=== PATIENT | male | born 1980 | race Caucasian/White ===

== ENCOUNTER 2023-05-17 13:51 | Inpatient (IN) | payer SELFPAY ==
[~2023-05-17] VITALS: Ht 167.6 cm; Wt 95.9 kg
[2023-05-17] MEDS ORDERED: ONDANSETRON HCL 4MG/2ML INJ IV STA (14:16)
[2023-05-17] MEDS ORDERED: SODIUM CHLORIDE 0.9% 1,000 ML IV ONE ×2 (14:30)
[2023-05-17 15:17] LABS: BASOPHILS % 0.3 % (0.0-2.0); HEMATOCRIT. 44.5 % (42.0-52.0); HEMOGLOBIN. 14.7 g/dL (14.0-18.0); LYMPHOCYTES % 16.7 % (20.0-50.0); MEAN CORPUSCULAR HEMOGLOBIN 27.3 pg (28.0-32.0); MEAN CORPUSCULAR VOLUME 82.7 fL (80.0-94.0); MEAN PLATELET VOLUME 10.2 fl (7.4-10.4); MONOCYTES % 4.7 % (2.0-8.0); NEUTROPHILS % 78.3 % (40.0-76.0); PLATELET 203 x1000/uL (130-400); RED BLOOD CELL COUNT 5.38 mill/uL (4.7-6.1); RED CELL DISTRIBUTION WIDTH 14.6 % (11.6-14.6)
[2023-05-17 15:19] LABS: PROTHROMBIN TIME 10.7 sec (9.6-11.0)
[2023-05-17 15:20] LABS: CHLORIDE 114 mEq/L (98-107)
[2023-05-17 15:26] LABS: BG BASE EXCESS -14.4 mmol/L (-2.0-2.0); BG CARBOXYHEMOGLOBIN 0.5 % (0.5-1.5); BG DEOXYHEMOGLOBIN 4.3 % (0.0-5.0); BG FRACTION INSPIRED OXYGEN 21; BG HCO3 ACT 12.4 mmol/L (22.0-26.0); BG METHEMOGLOBIN 0.2 % (0.0-1.5); BG OXYGEN SATURATION 95.7 % (92.0-98.5); BG PCO2 32.3 mmHg (35.0-45.0); BG PH 7.201 (7.350-7.450); BG PO2 91.1 mmHg (75.0-100.0); BG SAMPLE SITE LEFT RADIAL; BG TOTAL HEMOGLOBIN 14.7 g/dL (12.0-18.0); BG VENT MODE ROOM AIR
[2023-05-17 15:29] LABS: BETA HYDROXYBUTYRATE 4.8 mMol/L (0.0-0.3); ETHANOL BLOOD 53 mg/dL (-10); PHOSPHORUS 1.5 mg/dL (2.5-4.9)
[2023-05-17] MEDS ORDERED: POTASSIUM CHLORIDE INJ 40 MEQ in DEXT 5% WATER 250 ML IV ONE (15:45)
[2023-05-17] MEDS ORDERED: NYSTATIN 100,000 UNITS/ML 5ML UDC SSW NR (16:00)
[2023-05-17] MEDS: KCL 20MEQ/100ML X 2 FOR TOTAL KCL 40MEQ/200ML IV SCH ×2 (16:22→20:41)
[2023-05-17] MEDS ORDERED: DEXTROSE 50% WATER 50ML SYRINGE IV PRN ×3 (16:45→19:00)
[2023-05-17] MEDS ORDERED: SODIUM CHL 0.45% + KCL 20MEQ/L 1,000 ML IV ONE (16:45)
[2023-05-17] MEDS ORDERED: INSULIN REGULAR 100U/100ML PMX 100 ML IV SCH ×2 (16:45→19:00)
[2023-05-17] MEDS: BLOOD SUGAR DIAGNOSTIC STRIP TEST SCH ×11 (17:06→22:44)
[2023-05-17] MEDS ORDERED: ONDANSETRON HCL 4MG/2ML INJ IV NR (17:15)
[2023-05-17] MEDS ORDERED: SODIUM PHOS,M-BASIC-D-BASIC 15 MM in DEXT 5% WATER 245 ML IV NR (17:30)
[2023-05-17 18:14] LABS: CLARITY URINE CLEAR (CLEAR); COLOR URINE YELLOW (YELLOW); KETONES URINE 2+ (NEGATIVE); LEUKOCYTE ESTERASE URINE NEGATIVE (NEGATIVE); NITRITE URINE NEGATIVE (NEGATIVE); OCCULT BLOOD URINE NEGATIVE (NEGATIVE); PH URINE 5.5 (4.5-8.0); PROTEIN URINE NEGATIVE (NEGATIVE); SPECIFIC GRAVITY URINE 1.021 (1.005-1.030); UROBILINOGEN URINE 0.2 E.U./dL (0.2-1.0)
[2023-05-17 18:45] LABS: *AMPHETAMINES SCREEN URINE PRESUMTIVE POSITIVE (NEGATIVE); *BARBITURATES SCREEN URINE NEGATIVE (NEGATIVE); *BENZODIAZEPINES SCREEN URINE NEGATIVE (NEGATIVE); *COCAINE SCREEN URINE NEGATIVE (NEGATIVE); CANNABINOID URINE SCREEN NEGATIVE (NEGATIVE); METHADONE URINE SCREEN NEGATIVE (NEGATIVE); OPIATES URINE SCREEN NEGATIVE (NEGATIVE); PHENCYCLIDINE URINE SCREEN NEGATIVE (NEGATIVE)
[2023-05-17 18:55] LABS: CHLORIDE 109 mEq/L (98-107)
[2023-05-17] MEDS ORDERED: IPRATROPIUM/ALBUTEROL 0.5-3(2.5)MG/3ML NEB NEB PRN (19:00)
[2023-05-17] MEDS ORDERED: DOCUSATE SODIUM 100MG CAPSULE PO PRN (19:00)
[2023-05-17] MEDS ORDERED: MAGNESIUM/ALUMINUM HYDROXIDE/SIMETHICONE 30ML UDC PO PRN (19:00)
[2023-05-17] MEDS ORDERED: NITROGLYCERIN 0.4MG TABLET SL SL PRN (19:00)
[2023-05-17] MEDS ORDERED: CLONIDINE 0.1MG TABLET PO PRN (19:00)
[2023-05-17] MEDS ORDERED: ZOLPIDEM TARTRATE 5MG TABLET PO PRN (19:00)
[2023-05-17] MEDS ORDERED: GUAIFENESIN 200MG/10ML SUGAR FREE UDC PO PRN (19:00)
[2023-05-17] MEDS ORDERED: MVI, ADULT NO.1 10 ML, FOLIC ACID 1 MG, THIAMINE HCL 100 MG in SODIUM CHLORIDE 0.9% 1,0... IV ONE ×4 (20:00)
[2023-05-17 20:06] LABS: T4 FREE 0.89 ng/dL (0.76-1.46)
[2023-05-17 20:25] LABS: CHLORIDE 110 mEq/L (98-107)
[2023-05-17 20:32] LABS: FOLIC ACID (FOLATE) SERUM 15.9 ng/mL (>5.38)
[2023-05-17] MEDS: ENOXAPARIN 30MG/0.3ML SYR SUBCUT SCH (20:53)
[2023-05-18] VITALS (9 sets, daily range): BP systolic 100–143; BP diastolic 60–95; PULSE 78–136; RESP 16–20; TEMP 97–98.8
[2023-05-18] MEDS: BLOOD SUGAR DIAGNOSTIC STRIP TEST SCH ×14 (00:23→21:00)
[2023-05-18 02:56] LABS: CHLORIDE 109 mEq/L (98-107)
[2023-05-18] MEDS ORDERED: SODIUM CHLORIDE 0.9% 1,000 ML IV SCH (03:00)
[2023-05-18] MEDS: KETOROLAC 15MG/ML VIAL IV PRN ×2 (03:56→18:39)
[2023-05-18] MEDS ORDERED: POTASSIUM CHLORIDE 20MEQ TABLET SR PO NR (04:15)
[2023-05-18] MEDS ORDERED: DEXTROSE 50% WATER 50ML SYRINGE IV PRN (05:00)
[2023-05-18] MEDS ORDERED: DEXT 5%/0.9% NACL 1,000 ML IV ONE (05:00)
[2023-05-18] MEDS ORDERED: MAGNESIUM 1 G PREMIX 100 ML IV ONE (07:45)
[2023-05-18] MEDS ORDERED: DEXT 5%/0.45% NACL 1000ML 1,000 ML IV SCH (07:45)
[2023-05-18] MEDS ORDERED: POTASSIUM PHOS,M-BASIC-D-BASIC 20 MMOL in DEXT 5% WATER 243.3333 ML IV NR (08:00)
[2023-05-18] MEDS: ENOXAPARIN 30MG/0.3ML SYR SUBCUT SCH ×2 (08:29→21:32)
[2023-05-18] MEDS: POTASSIUM CHLORIDE 20MEQ TABLET SR PO SCH (08:49)
[2023-05-18] MEDS: PANTOPRAZOLE SODIUM 40 MG/VIAL IV SCH (08:56)
[2023-05-18] MEDS: INSULIN LISPRO 100 UNITS/ML SUBCUT SCH ×6 (10:31→21:34)
[2023-05-18 11:37] LABS: BASOPHILS % 0.7 % (0.0-2.0); EOSINOPHILS % 0.6 % (0.0-5.0); HEMATOCRIT. 41.7 % (42.0-52.0); HEMOGLOBIN. 14.1 g/dL (14.0-18.0); LYMPHOCYTES % 30.6 % (20.0-50.0); MEAN CORPUSCULAR HEMOGLOBIN 27.2 pg (28.0-32.0); MEAN CORPUSCULAR VOLUME 80.2 fL (80.0-94.0); MONOCYTES % 6.8 % (2.0-8.0); NEUTROPHILS % 61.3 % (40.0-76.0); PLATELET 155 x1000/uL (130-400); RED CELL DISTRIBUTION WIDTH 14.5 % (11.6-14.6)
[2023-05-18 11:51] LABS: CHLORIDE 104 mEq/L (98-107)
[2023-05-18 11:59] LABS: PHOSPHORUS 1.4 mg/dL (2.5-4.9)
[2023-05-18 12:07] LABS: CREATINE KINASE 87 IU/L (39-308); CREATINE KINASE MB FRACTION 2.6 ng/mL (0.5-3.6)
[2023-05-18 13:11] LABS: HIV SCREEN 4G Non Reactive (Non Reactive)
[2023-05-18 21:16] LABS: CHLORIDE 98 mEq/L (98-107)
[2023-05-18] MEDS ORDERED: INSULIN GLARGINE 100 UNITS/ML SUBCUT SCH ×2 (22:00)
[2023-05-19] VITALS (7 sets, daily range): BP systolic 116–135; BP diastolic 52–103; PULSE 60–114; RESP 16–24; TEMP 96.6–100.9; O2SAT 96
[2023-05-19 06:08] LABS: HEMATOCRIT 44.4 % (42.0-52.0); HEMOGLOBIN 14.8 g/dL (14.0-18.0); MEAN CORPUSCULAR HEMOGLOBIN 26.9 pg (28.0-32.0); MEAN CORPUSCULAR VOLUME 80.7 fL (80.0-94.0); PLATELET 128 x1000/uL (130-400); RED CELL DISTRIBUTION WIDTH 14.6 % (11.6-14.6)
[2023-05-19 07:03] LABS: CHLORIDE 98 mEq/L (98-107)
[2023-05-19] MEDS ORDERED: POTASSIUM CHLORIDE 20MEQ TABLET SR PO NR (07:15)
[2023-05-19] MEDS: BLOOD SUGAR DIAGNOSTIC STRIP TEST SCH ×3 (07:53→17:02)
[2023-05-19] MEDS: POTASSIUM CHLORIDE 20MEQ TABLET SR PO SCH (08:19)
[2023-05-19] MEDS: INSULIN LISPRO 100 UNITS/ML SUBCUT SCH ×6 (08:22→17:17)
[2023-05-19] MEDS: PANTOPRAZOLE SODIUM 40 MG/VIAL IV SCH (08:36)
[2023-05-19] MEDS: ENOXAPARIN 30MG/0.3ML SYR SUBCUT SCH (08:37)
[2023-05-19 09:11] LABS: PHOSPHORUS 0.9 mg/dL (2.5-4.9)
[2023-05-19] MEDS ORDERED: POTASSIUM PHOS,M-BASIC-D-BASIC 30 MMOL in SODIUM CHLORIDE 0.9% 500 ML IV NR (11:00)
[2023-05-19] MEDS ORDERED: LORAZEPAM 2MG/ML CPJ IV NR (11:00)
[2023-05-19] MEDS ORDERED: INSLIS SUBCUT (16:44)
[2023-05-19] MEDS ORDERED: LANTUSUD SUBCUT (16:44)
[2023-05-19] MEDS ORDERED: INSULIN GLARGINE 100 UNITS/ML SUBCUT SCH (22:00)
== END 2023-05-19 21:00 | disposition home or self-care (01) | DRG 420 ==
LOC: ER 13:51 → EDBEDREQ 14:31 → EDBEDREQSVC 17:43 → 8WST 18:20 → EDBEDREQ 18:31 → EDBEDREQTM 18:31 → EDBEDREQDT 05-18 04:06 → EDBEDREQSVC 05-18 04:06
PROVIDERS: ADMIT Internal Medicine; ATTEND Internal Medicine
DX: E11.10 Type 2 diabetes mellitus with ketoacidosis without coma (principal); B37.0 Candidal stomatitis; E87.4 Mixed disorder of acid-base balance; E46 Unspecified protein-calorie malnutrition; E83.39 Other disorders of phosphorus metabolism; E83.42 Hypomagnesemia; E78.00 Pure hypercholesterolemia, unspecified; F19.10 Other psychoactive substance abuse, uncomplicated; F12.90 Cannabis use, unspecified, uncomplicated; F15.90 Other stimulant use, unspecified, uncomplicated; F17.210 Nicotine dependence, cigarettes, uncomplicated; J45.909 Unspecified asthma, uncomplicated; Z79.4 Long term (current) use of insulin; Z68.30 Body mass index [BMI] 30.0-30.9, adult
CPT/HCPCS: 36415; 36600; 71045; 80048; 80053; 80061; 80305; 80320; 81003; 82010; 82375; 82550; 82553; 82607; 82746; 82805; 82962; 83036; 83540; 83550; 83605; 83735; 84100; 84439; 84443; 84484; 85025; 85027; 87389; 93005; 93970; 99291; A6261; C9113; J1650; J1815; J1885; J2060; J3411; J3480; J3490; J7030; J7040; J7060; G0480